=== PATIENT | male | born 1930 | race Caucasian/White ===

== ENCOUNTER 2019-05-02 09:42 | Emergency (ER) | payer MEDICARE ==
[~2019-05-02] VITALS: Ht 193 cm; Wt 102.8 kg
[~2019-05-02 09:42] MED LIST: AMOXICILLIN/PO500 MG PO; AUGMENTIN875TAB OR; COLON CARE; COSAMIN DS1 CA1 OR; CRESTOR20 MG PO; GLIPIZIDE ER10 M1 PO; GLUCOSAMINE CHONDROI PO; GLYCOLAX3350 N1 OR; JANUMET1 TA1 PO; LISINOPRIL2.5 MG PO; LORTAB 10-325 M1 TAB PO; OMEPRAZOLE20 MG PO; SIMVASTATIN40 MG PO
[2019-05-02] MEDS ORDERED: GLUCOSAMINE CHO1 CA3 PO (10:57)
[2019-05-02] MEDS ORDERED: AMIODARONE200 MG PO (10:57)
[2019-05-02] MEDS ORDERED: METOPROL TAR25 MG PO (10:57)
[2019-05-02] MEDS ORDERED: ASPIRIN325 MG PO (10:58)
[2019-05-02] MEDS ORDERED: TYLENOL500 MG PO (10:58)
[2019-05-02 11:06] LABS: HEMOGLOBIN 9.3 g/dl (14.0-18.0); IMMATURE GRANULOCYTES 0.9 % (0.0-5.0); MEAN CELL VOLUME 86.2 fL CALC (80.0-100.0); MEAN CORPUSCULAR HGB 26.7 pG CALC (26.0-32.0); NEUT# 7.04 thou/uL (1.82-7.42); RED BLOOD COUNT 3.48 mill/uL (4.70-6.10); RED CELL DISTRI WIDTH 15.8 % (11.5-15.5)
[2019-05-02 11:14] LABS: ALBUMIN 3.9 g/dL (3.2-5.0); ALKALINE PHOSPHATASE 75 u/l (38-126); ANION GAP 13 (6-22 (CALC)); BILIRUBIN, TOTAL 0.7 mg/dL (0.0-1.4); BUN 25 mg/dL (8-23); BUN/CREATININE RATIO 17 (12-20 (CALC)); CARBON DIOXIDE 26 mmol/l (22-30); CHLORIDE 102 mmol/l (95-108); CREATININE 1.4 mg/dL (0.7-1.3); GFR 48 ML/MIN (>=60 (CALC)); GFR FOR AFR.AMER. 58 ML/MIN (>=60 (CALC)); POTASSIUM 4.6 mmol/l (3.5-5.1); SGOT/AST 30 u/l (19-48); SODIUM 136 mmol/l (137-146); TOTAL PROTEIN 6.9 g/dL (6.3-8.2)
[2019-05-02] MEDS ORDERED: TESSALON PERLE100 MG PO (13:47)
[2019-05-02] MEDS ORDERED: ZITHROMAX250 MG PO (13:47)
[2019-05-02] MEDS ORDERED: VENTOLIN HFA IN (13:47)
[2019-05-02 14:15] VITALS: BP 133/65
== END 2019-05-02 14:15 | disposition home or self-care (01) ==
LOC: ED 09:42
PROVIDERS: Emergency Medicine
DX: J06.9 Acute upper respiratory infection, unspecified (principal); R50.9 Fever, unspecified; R05 Cough; Z98.890 Other specified postprocedural states; R51 Headache
CPT/HCPCS: Q9967